=== PATIENT | male | born 1995 | race Caucasian/White ===

== ENCOUNTER 2017-03-21 13:26 | Emergency (ER) | payer OTHER ==
[2017-03-21] MEDS ORDERED: IPRATROPIUM/ALBUTEROL (0.5MG/3MG) NEB INH ONE (13:46)
[2017-03-21] MEDS ORDERED: AZITHROMYCIN 500 MG TABLET PO ONE (13:46)
[2017-03-21] MEDS ORDERED: DEXAMETHASONE SOD PHOSPHATE 10MG/ML VIAL PO ONE (13:46)
--- NOTE | 2017-03-21 13:48 | Emergency Department Record ---
History of Present Illness - General Chief complaint: ENT Stated complaint: SORE THROAT,COUGH,SINUS CONGESTION Time Seen by Provider: 03/21/17 13:46 Source: Patient Mode of Arrival: Ambulatory Limitations: No limitations - History of Present Illness Initial comments: 21 yo male presents with 2 days of sore throat and cough. Subjective fevers. 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 He has brownish sputum. He quick smoking one year ago. MD complaint: Sore throat -: Days(s) (2) Location: Throat Severity: Moderate Improves with: None Worsens with: None Associated Symptoms: Cough, Pain with swallowing - Related Data Home Medications Medication Instructions Recorded Confirmed Last Taken No Home Med [NO HOME MEDS] 03/21/17 03/21/17 Unknown Previous Rx's Medication Instructions Recorded Azithromycin 250 mg PO DAILY #4 tablet 03/21/17 Prednisone [Prednisone 20Mg] 20 mg PO BID #10 tab 03/21/17 Allergies Allergy/AdvReac Type Severity Reaction Status Date / Time No Known Drug Allergies Allergy Unverified 06/25/16 17:51 Review of Systems Constitutional: Reports: Fever. Denies: Chills, Malaise, Weakness Eyes: Denies: Eye discharge ENT: Reports: Congestion, Throat pain Respiratory: Reports: Cough, Wheezes. Denies: Dyspnea, Hemoptysis, Stridor Cardiovascular: Denies: Chest pain, Palpitations Endocrine: Denies: Fatigue Gastrointestinal: Denies: Abdominal pain, Diarrhea, Nausea, Vomiting Genitourinary: Denies: Dysuria Musculoskeletal: Denies: Arthralgia, Back pain, Joint swelling, Myalgia Skin: Denies: Bruising, Change in color, Rash Neurological: Denies: Headache Psychiatric: Denies: Anxiety Hematological/Lymphatic: Denies: Blood Clots, Easy bleeding, Easy bruising, Swollen glands Past Medical History - SOCIAL HISTORY Smoking Status: Current some day smoker - RESPIRATORY Hx Respiratory Disorders: No - CARDIOVASCULAR Hx Cardio Disorders: No - NEURO Hx Neuro Disorders: No - GI Hx GI Disorders: No - Hx Genitourinary Disorders: No - ENDOCRINE Hx Endocrine Disorders: No - MUSCULOSKELETAL Hx Musculoskeletal Disorders: No - PSYCH Hx Psych Problems: No - HEMATOLOGY/ONCOLOGY Hx Hematology/Oncology Disorders: No Physical Exam - General General Appearance: Alert, Oriented x3, Cooperative, No acute distress Limitations: No limitations - Head Head exam: Atraumatic, Normocephalic, Normal inspection - Eye Eye exam: Normal appearance. negative: Conjunctival injection, Periorbital swelling - ENT ENT exam: Normal exam, Mucous membranes moist, TM's normal bilaterally. negative: Normal orophraynx Ear exam: Normal external inspection Nasal Exam: Normal inspection Mouth exam: Normal external inspection Teeth exam: Normal inspection Throat exam: Tonsillar erythema, Tonsillomegaly. negative: Normal inspection, Tonsillar exudate, R peritonsillar mass, L peritonsillar mass - Neck Neck exam: Normal inspection, Full ROM, Lymphadenopathy (mild anterior cervical) . negative: Tenderness - Respiratory Respiratory exam: Decreased breath sounds, Rhonchi, Wheezes. negative: Normal lung sounds bilaterally, Accessory muscle use, Prolonged expiratory, Respiratory distress, Stridor - Cardiovascular Cardiovascular Exam: Regular rate, Normal rhythm, Normal heart sounds Peripheral Pulses: 2+: Radial (R), Radial (L) - GI/Abdominal GI/Abdominal exam: Soft. negative: Tenderness - Rectal Rectal exam: Deferred - exam: Deferred - Extremities Extremities exam: Normal inspection, Full ROM, Normal capillary refill. negative: Tenderness - Back Back exam: Reports: Normal inspection, Full ROM. Denies: Muscle spasm, Rash noted, Tenderness - Neurological Neurological exam: Alert, Normal gait, Oriented X3 - Psychiatric Psychiatric exam: Normal affect, Normal mood - Skin Skin exam: Dry, Intact, Normal color, Warm Course - Reevaluation(s) Reevaluation #1: The influenza and strep are negative CXR ordered 03/21/17 14:16 03/21/17 14:31 Prelim CXR read by me. No acute process DC on Azithromycin, Prednisone, Albuterol MDI. 03/21/17 14:34 RT to teach and dispense an Albuterol as he did get some improvement from the treatment On recheck after the treatment improved with very mild wheeze 03/21/17 14:34 Disposition Disposition: Discharge Clinical Impression: Bronchitis Disposition: Home, Self-Care Condition: (1) Good Instructions: Acute Bronchitis (ED) Additional Instructions: Rest and stay well hydrated Return if worse, short of breath or any new concerns. Prescriptions: Azithromycin 250 mg PO DAILY #4 tablet Prednisone [Prednisone 20Mg] 20 mg PO BID #10 tab Forms: Patient Portal Access Time of Disposition: 14:19 Quality - Quality Measures Quality Measures: N/A - Blood Pressure Screening Does Patient Have Any of the Following: No Blood Pressure Classification: Pre-Hypertensive BP Reading Systolic Measurement: 142 Diastolic Measurement: 85 Screening for High Blood Pressure: < Pre-Hypertensive BP, F/U Documented > [ G8950] Pre-Hypertensive Follow-up Interventions: Referral to alternative/primary care provider.
[2017-03-21 14:12] LABS: STREP A SCREEN NEGATIVE (NEGATIVE)
[2017-03-21 14:14] LABS: INFLUENZA A NEGATIVE (NEGATIVE); INFLUENZA B NEGATIVE (NEGATIVE)
[2017-03-21] MEDS ORDERED: ALBUTEROL HFA 8 GM INHALER INH ONE (14:33)
--- NOTE | 2017-03-22 15:54 | RADIOLOGY REPORT ---
EXAM: CHEST 2 VIEWS HISTORY: COUGH WITH BROWN SPUTUM BEGINNING YESTERDAY. TECHNIQUE: Upright PA and lateral views of the chest. COMPARISON: Two-view chest radiographic examination dated 10/20/2012. FINDINGS: The cardiomediastinal silhouette is normal in size and configuration. The pulmonary vasculature is nondilated. The lungs and pleural spaces are clear. The osseous structures are intact. IMPRESSION: NO RADIOGRAPHIC EVIDENCE OF ACUTE CARDIOPULMONARY DISEASE UNCHANGED SINCE 10/20/2012. JOB NUMBER: [id number] [facility]
== END 2017-03-21 14:50 | disposition home or self-care (01) ==
LOC: ER 13:26
DX: J20.9 Acute bronchitis, unspecified (principal); R13.10 Dysphagia, unspecified; J02.9 Acute pharyngitis, unspecified; F17.210 Nicotine dependence, cigarettes, uncomplicated
CPT/HCPCS: 99283; 99284; 87880; 87400; 71020; 94640 ×2; J1100

== ENCOUNTER 2017-05-19 11:56 | Emergency (ER) | payer OTHER ==
[2017-05-19] MEDS ORDERED: 0.9 % SODIUM CHLORIDE 1,000 ML BAG IV ONE (12:12)
[2017-05-19] MEDS ORDERED: ONDANSETRON HCL IV 4 MG/2 ML VIAL IV ONE (12:12)
--- NOTE | 2017-05-19 12:18 | Emergency Department Record ---
History of Present Illness - General Chief Complaint: Abdominal Pain Stated Complaint: STOMACH PROBLEM Source: Patient Mode of Arrival: Ambulatory Limitations: No limitations - History of Present Illness Initial Comments: The patient is here due to a 3 day hx of frequent nausea, vomiting, and loose watery stools. For the last day the patient states the vomit and stool appear intermittently dark and tarry. He states he has been having cramping upper AP. The patient denies any bad food exposure or recent alcohol or Abx use. He also has no hx of abdominal surgeries but states he does have chronic stomach issues and is set up for a Colonoscopy in Jul. MD Complaint: Abdominal pain Onset/Timin -: Days(s) Quality: Cramping Associated Symptoms: Diarrhea, Nausea, Vomiting - Related Data Previous Rx's Medication Instructions Recorded Dicyclomine HCl [Bentyl] 10 mg PO Q8H #15 cap 05/19/17 Omeprazole [Prilosec] 20 mg PO DAILY #14 cap. 05/19/17 Ondansetron [Zofran Odt] 4 mg SL .Q4-6H PRN #12 tab.rapdis 05/19/17 Allergies Allergy/AdvReac Type Severity Reaction Status Date / Time No Known Drug Allergies Allergy Verified 05/19/17 12:02 Review of Systems Constitutional: Denies: Chills, Fever Eyes: Denies: Eye discharge ENT: Denies: Congestion Respiratory: Denies: Cough, Dyspnea, Hemoptysis Past Medical History - SOCIAL HISTORY Smoking Status: Current some day smoker - RESPIRATORY Hx Respiratory Disorders: No - CARDIOVASCULAR Hx Cardio Disorders: No - NEURO Hx Neuro Disorders: No - GI Hx GI Disorders: No - Hx Genitourinary Disorders: No - ENDOCRINE Hx Endocrine Disorders: No - MUSCULOSKELETAL Hx Musculoskeletal Disorders: No - PSYCH Hx Psych Problems: No - HEMATOLOGY/ONCOLOGY Hx Hematology/Oncology Disorders: No Physical Exam - General General Appearance: Alert, Oriented x3, Cooperative, No acute distress - Head Head exam: Atraumatic, Normocephalic, Normal inspection - Eye Eye exam: Normal appearance, PERRL - ENT Throat exam: Normal inspection. negative: Tonsillar erythema, Tonsillar exudate - Neck Neck exam: Normal inspection, Full ROM. negative: Tenderness - Respiratory Respiratory exam: Normal lung sounds bilaterally. negative: Respiratory distress - Cardiovascular Cardiovascular Exam: Regular rate, Normal rhythm, Normal heart sounds - GI/Abdominal GI/Abdominal exam: Soft, Tenderness (There is mild upper Ap tenderness.). negative: Distended, Rebound, Rigid - Rectal Rectal exam: Heme (-) stool, Normal inspection - Extremities Extremities exam: Normal inspection, Full ROM, Normal capillary refill. negative: Tenderness - Neurological Neurological exam: Alert. negative: Motor sensory deficit Course - Reevaluation(s) Reevaluation #1: The patient is doing very well after the IV and oral medicines. His pain and nausea have resolved 100%. On exam his abdomen is very soft and nontender in all 4 quads. The patient is feeling MUCH better and would like to go home. I explained to him that it appears he most likely has a viral Gastroenteritis. We will place the patient on oral medicines and have him F/U with his PCP next week. 05/19/17 13:39 Medical Decision Making - Data Complexity MDM Data: Labs Ordered and/or Reviewed - Lab Data Result diagrams: 05/19/17 12:20 05/19/17 12:20 Disposition Disposition: Discharge Clinical Impression: Gastroenteritis Disposition: Home, Self-Care Condition: (2) Stable Instructions: Gastroenteritis (ED) Additional Instructions: Please drink plenty of fluids. Please take the Zofran if needed for nausea and use the Prilosec for 2 weeks. You may also use the Bentyl for cramping. Please see your PCP early next week for recheck and return to the ER for any worsening symptoms. Prescriptions: Dicyclomine HCl [Bentyl] 10 mg PO Q8H #15 cap Omeprazole [Prilosec] 20 mg PO DAILY #14 cap. Ondansetron [Zofran Odt] 4 mg SL .Q4-6H PRN #12 tab.rapdis PRN Reason: Nausea Forms: Patient Portal Access Time of Disposition: 13:45 Quality - Quality Measures Quality Measures: N/A - Blood Pressure Screening View Details: Yes Does Patient Have Any of the Following: No Blood Pressure Classification: Pre-Hypertensive BP Reading Systolic Measurement: 137 Diastolic Measurement: 70 Screening for High Blood Pressure: < Pre-Hypertensive BP, F/U Documented > [ G8950] Pre-Hypertensive Follow-up Interventions: Referral to alternative/primary care provider.
[2017-05-19 12:48] LABS: BASO % 0.2 % (0-6); EOS % 7.8 % (0-6); GRAN % 76.1 % (47-80); HEMATOCRIT 49.1 % (42.0-52.0); HEMOGLOBIN 17.4 gm/dl (14.0-18.0); LYMPH % 10.2 % (16-45); MEAN CELL VOLUME 83.9 fl (81-97); MEAN CORPUSCULAR HEMOGLOBIN 29.7 pg (27-33); MEAN CORPUSCULAR HGB CONC 35.4 g/dl (32-36); MEAN PLATELET VOLUME 11.6 fl (7.4-10.4); MONO % 5.7 % (0-9); PLATELET COUNT 176 K/uL (130-400); RED BLOOD COUNT 5.85 M/uL (4.40-5.70); RED CELL DISTRIBUTION WIDTH 13.6 % (11.5-14.5); WHITE BLOOD COUNT W/O DIFF 13.6 K/uL (4.2-12.2)
[2017-05-19 12:58] LABS: BLOOD UREA NITROGEN 14 mg/dL (6-20); EST GLOMERULAR FILTRATION RATE > 60 mL/min
[2017-05-19 12:59] LABS: TOTAL PROTEIN 7.9 g/dL (6.6-8.7)
[2017-05-19 13:01] LABS: GLUCOSE,RANDOM 110 mg/dL (74-109)
[2017-05-19] MEDS ORDERED: DICYCLOMINE HCL 10 MG/ML AMPUL IM ONE (13:02)
[2017-05-19] MEDS ORDERED: MAGNESIUM HYDROXIDE/AL HYDROX 30 ML, LIDOCAINE VISC 2% 200 MG PO ONE ×2 (13:02)
[2017-05-19 13:03] LABS: ALBUMIN 4.9 g/dL (4.0-5.0); ALT/SGPT 19 U/L (<41); AST/SGOT 17 U/L (10.0-50.0)
[2017-05-19 13:04] LABS: ALKALINE PHOSPHATASE 96 U/L (40-129); LIPASE 19 U/L (13-60)
[2017-05-19 13:07] LABS: BILIRUBIN,DIRECT < 0.2 mg/dL (0-0.3)
[2017-05-19 13:10] LABS: URINE APPEARANCE CLEAR; URINE BILIRUBIN NEGATIVE (NEGATIVE); URINE BLOOD NEGATIVE (NEGATIVE); URINE COLOR YELLOW; URINE GLUCOSE (UA) NEGATIVE (NEGATIVE); URINE KETONE NEGATIVE (NEGATIVE); URINE LEUKOCYTE ESTERASE NEGATIVE (NEGATIVE); URINE NITRITE NEGATIVE (NEGATIVE); URINE PROTEIN NEGATIVE (NEGATIVE); URINE UROBILINOGEN 0.2 E.U./dL (0.20 - 1.00)
== END 2017-05-19 13:52 | disposition home or self-care (01) ==
LOC: ER 11:56
DX: K52.9 Noninfective gastroenteritis and colitis, unspecified (principal); R11.2 Nausea with vomiting, unspecified
CPT/HCPCS: 99284 ×2; 96374; 96372; 96361; 83690; 85025; 80076; 80048; 81003; J2405; J7030

== ENCOUNTER 2018-08-03 07:30 | Emergency (ER) | payer OTHER ==
[2018-08-03] MEDS ORDERED: ACETAMINOPHEN 325 MG TAB PO ONE (07:55)
[2018-08-03 08:04] LABS: BASO % 0.7 % (0-6); EOS % 9.8 % (0-6); GRAN % 56.9 % (47-80); HEMATOCRIT 51.8 % (42.0-52.0); HEMOGLOBIN 17.5 gm/dl (14.0-18.0); LYMPH % 23.8 % (16-45); MEAN CELL VOLUME 85.2 fl (81-97); MEAN CORPUSCULAR HEMOGLOBIN 28.7 pg (27-33); MEAN CORPUSCULAR HGB CONC 33.8 g/dl (32-36); MEAN PLATELET VOLUME 11.9 fl (7.4-10.4); MONO % 8.8 % (0-9); PLATELET COUNT 194 K/uL (130-400); RED BLOOD COUNT 6.08 M/uL (4.40-5.70); RED CELL DISTRIBUTION WIDTH 13.5 % (11.5-14.5); WHITE BLOOD COUNT W/O DIFF 8.8 K/uL (4.2-12.2)
--- NOTE | 2018-08-03 08:04 | Emergency Department Record ---
History of Present Illness - General Chief Complaint: Chest Pain Stated Complaint: CHEST DISCOMFORT X5 DAYS Time Seen by Provider: 08/03/18 07:47 Source: Patient Mode of Arrival: Ambulatory Limitations: No limitations - History of Present Illness Initial Comments: The patient is here due to a 4-5 day hx of lower CP. He states he had a URI for the last week and has been coughing a lot. About 4-5 days ago he developed sharp lower CP that intermittently radiates up his chest. The pain is sharp and aching and is much worse with movement and palpation. He denies any SOB, PEE, sweating, nausea or CROWDER. The patient state the pain is not worse with exertion and he is able to lift weights with no change in the pain. The patient also states coughing makes the pain much worse and he believes he may have pulled a muscle due to the extreme coughing. The patient has no cardiac risk factors. MD Complaint: Chest pain Onset/Timin -: Days(s) Pain Location: Substernal Pain Radiation: LUE Severity: Moderate Severity scale (1-10): 7 Quality: Aching, Dull, Sharp Worsens With: Nothing, Palpation Other Symptoms: Cough Treatments Prior to Arrival: None - Related Data Previous Rx's Medication Instructions Recorded Naproxen [Naprosyn] 500 mg PO BID #14 tablet. 08/03/18 Allergies Allergy/AdvReac Type Severity Reaction Status Date / Time No Known Drug Allergies Allergy Verified 08/03/18 07:42 Travel Screening - Travel/Exposure Within Last 30 Days Have you traveled within the last 30 days?: No Review of Systems Constitutional: Denies: Chills, Fever Eyes: Denies: Eye discharge ENT: Denies: Congestion Respiratory: Reports: Cough. Denies: Dyspnea Cardiovascular: Reports: Chest pain. Denies: Arrhythmia, Dyspnea on exertion Endocrine: Denies: Fatigue Gastrointestinal: Denies: Nausea Genitourinary: Denies: Dysuria Musculoskeletal: Denies: Arthralgia Skin: Denies: Bruising Past Medical History - SOCIAL HISTORY Smoking Status: Former smoker Alcohol Use: None Drug Use: None - RESPIRATORY Hx Respiratory Disorders: Yes Hx Bronchitis: Yes - CARDIOVASCULAR Hx Cardio Disorders: No - NEURO Hx Neuro Disorders: No - GI Hx GI Disorders: No - Hx Genitourinary Disorders: No - ENDOCRINE Hx Endocrine Disorders: No - MUSCULOSKELETAL Hx Musculoskeletal Disorders: No - PSYCH Hx Psych Problems: No - HEMATOLOGY/ONCOLOGY Hx Hematology/Oncology Disorders: No Family Medical History Any Significant Family History?: No Physical Exam - General General Appearance: Alert, Oriented x3, Cooperative, No acute distress - Head Head exam: Atraumatic, Normocephalic, Normal inspection - Eye Eye exam: Normal appearance, PERRL, EOMI - ENT Throat exam: Normal inspection. negative: Tonsillar erythema, Tonsillar exudate - Neck Neck exam: Normal inspection, Full ROM. negative: Tenderness - Respiratory Respiratory exam: Normal lung sounds bilaterally, Chest wall tenderness (The CP is 100!! reproducible with palpation of the lower sternum at the manubrium. It also is reproducible with chest rotation and coughing.). negative: Respiratory distress - Cardiovascular Cardiovascular Exam: Regular rate, Normal rhythm, Normal heart sounds. negative : Diastolic murmur, Systolic murmur - GI/Abdominal GI/Abdominal exam: Soft, Normal bowel sounds. negative: Tenderness - Extremities Extremities exam: Normal inspection, Full ROM, Normal capillary refill. negative: Tenderness - Neurological Neurological exam: Alert, Normal gait. negative: Abnormal gait, Motor sensory deficit - Psychiatric Psychiatric exam: negative: Anxious, Depressed Course Vital Signs 08/03/18 07:37 Temperature 97.7 F Pulse Rate 78 Respiratory 20 Rate Blood Pressure 132/76 Pulse Ox 98 - Reevaluation(s) Reevaluation #1: The patient is resting comfortably at this time. His HR is 60 and he is texting on his phone. I did discuss the normal lab tests with the patient and the need for Naprosyn for pain and to see his PCP for recheck due to the chest wall pain. 08/03/18 08:43 Medical Decision Making - Data Complexity MDM Data: Labs Ordered and/or Reviewed, X-Ray Ordered and/or Reviewed, EKG Ordered and/or Reviewed - Lab Data Result diagrams: 08/03/18 07:45 08/03/18 07:45 - EKG Data -: EKG Interpreted by Me EKG: No Acute Changes, Normal EKG - Radiology Data Radiology results: Report reviewed (CXR: Neg) Disposition Disposition: Discharge Clinical Impression: Chest wall pain Disposition: Home, Self-Care Condition: (2) Stable Instructions: Chest Wall Pain (ED) Additional Instructions: Please take Naprosyn for pain and also take OTC cough and cold medicine. Please see your family doctor for recheck next week and return to the ER for any worsening symptoms. Prescriptions: Naproxen [Naprosyn] 500 mg PO BID #14 tablet.dr Forms: Patient Portal Access Time of Disposition: 08:45 Quality - Quality Measures Quality Measures: N/A - Blood Pressure Screening View Details: Yes Does Patient Have Any of the Following: No Blood Pressure Classification: Pre-Hypertensive BP Reading Systolic Measurement: 132 Diastolic Measurement: 76 Screening for High Blood Pressure: < Pre-Hypertensive BP, F/U Documented > [ G8950] Pre-Hypertensive Follow-up Interventions: Referral to alternative/primary care provider.
[2018-08-03 08:16] LABS: BLOOD UREA NITROGEN 25 mg/dL (6-20); CREATININE 1.3 mg/dL (0.7-1.2); EST GLOMERULAR FILTRATION RATE > 60 mL/min
[2018-08-03 08:19] LABS: GLUCOSE,RANDOM 123 mg/dL (74-109)
[2018-08-03 08:22] LABS: CREATINE PHOSPHOKINASE 329 U/L (39-308)
[2018-08-03 08:26] LABS: CKMB 3.5 ng/mL (<6.73)
--- NOTE | 2018-08-05 16:07 | RADIOLOGY REPORT ---
EXAM: CHEST 2 VIEWS HISTORY: MIDLINE CHEST PAIN RADIATING TO LEFT SHOULDER FOR TWO DAYS. BRONCHITIS HISTORY. TECHNIQUE: Upright PA and lateral views of the chest. COMPARISON: Two-view chest radiographic examination dated 03/21/2017. FINDINGS: The heart is normal in size and the pulmonary vasculature is nondilated. The lungs and pleural spaces are clear. Minor levoconvex curvature of the upper thoracic spine. No acute osseous abnormality. IMPRESSION: NO RADIOGRAPHIC EVIDENCE OF ACUTE CARDIOPULMONARY DISEASE. [facility]: [id number] [facility]
== END 2018-08-03 08:58 | disposition home or self-care (01) ==
LOC: ER 07:30
DX: R07.89 Other chest pain (principal); R05 Cough; R06.2 Wheezing; F17.210 Nicotine dependence, cigarettes, uncomplicated
CPT/HCPCS: 71046; 80048; 82550; 82553; 84484; 85025; 93005; 93010; 99284